=== PATIENT | female | born 1975 | race Caucasian/White ===

== ENCOUNTER 2016-09-12 12:35 | Emergency (ER) | payer OTHER ==
[~2016-09-12] VITALS: Ht 154.9 cm; Wt 98.3 kg
[~2016-09-12 12:35] MED LIST: AMRIX15 MG PO; ASACOL HD800 MG PO; AZATHIOPRINE50 MG PO; BACTRIM,SEPT1 TABLET PO; CELEBREX50 MG PO; CYCLOBENZAPRINE5 MG PO; DICYCLOMINE HCL20 MG PO; Ecotrin PO; FLAGYL250 MG PO; HYDROCODON-ACE1 EAC7 PO; LOTRISONE15 GM TP; LYRICA75 MG PO; Levaquin PO; MOTRIN600 MG PO; NORCO 5/3251 TABLET PO; PLAQUENIL200 MG PO; PRILOSEC40 MG PO; Pravachol PO; REMICADE10 MG/ML IV; TESSALON PERLE100 MG PO; TIZANIDINE HCL; TRAMADOL HCL50 MG PO; VICODIN 5-3001 EACH PO; ZOFRAN ODT4 MG PO
[2016-09-12 15:36] LABS: ADD MIUA? NO; BILIRUBIN NEGATIVE; BLOOD NEGATIVE; COLOR YELLOW ((YELLOW)); GLUCOSE (STRIP) NEGATIVE; KETONES NEGATIVE; LEUKOCYTES NEGATIVE; NITRITE NEGATIVE; PROTEIN (STRIP) NEGATIVE; SPECIFIC GRAVITY 1.012 (1.000-1.030); UCUL ADDED? NO; UROBILINOGEN 0.2 MG/DL (0.2-1.0)
[2016-09-12 17:06] LABS: HEMATOCRIT 33.1 % (36.0-46.0); MCH 32.7 PG (29.0-34.0); MCHC 33.2 G/DL (30.0-36.0); MCV 98.5 FL (83-99); MEAN PLAT.VOLUME 9.9 uM^3 (9.5-12.4); PLATELET COUNT 292 K/uL (156-360); RBC DIS.WIDTH-CV 13.8 % (11.8-14.6); RBC DIS.WIDTH-SD 46.6 % (39-53); RED BLOOD COUNT 3.36 M/uL (3.80-5.20); WHITE BLOOD COUNT 5.5 K/uL (4.1-10.2)
[2016-09-12 17:19] LABS: CHLORIDE 103 mEq/L (99-109); POTASSIUM 3.5 mEq/L (3.7-5.4); SODIUM 139 mEq/L (136-147)
[2016-09-12 17:21] LABS: GLUCOSE 99 mg/dL (70-99)
[2016-09-12 17:22] LABS: ANION GAP 10 MEQ/L (2-14)
[2016-09-12 17:23] LABS: TOTAL BILIRUBIN 0.4 mg/dL (0.0-1.0)
[2016-09-12 17:24] LABS: ALKALINE PHOSPHATASE 90 IU/L (3-129)
[2016-09-12 17:25] LABS: GFR ESTIMATE (CALCULATED) > 59 mL/min/
[2016-09-12 17:26] LABS: UREA NITROGEN (BUN) 7 mg/dL (9-23)
[2016-09-12] MEDS ORDERED: ANTIVERT12.5 MG PO (17:52)
[2016-09-12 18:04] VITALS: BP 140/79
== END 2016-09-12 18:05 | disposition home or self-care (01) ==
LOC: EME 12:35 → EXP 12:35
PROVIDERS: Nurse Practitioner Family
DX: R42 Dizziness and giddiness (principal); R51 Headache; G89.29 Other chronic pain; D64.9 Anemia, unspecified
CPT/HCPCS: 70450; 80053; 81003; 85027; 99281; 99285

== ENCOUNTER 2017-05-08 14:34 | Emergency (ER) | payer OTHER ==
[~2017-05-08] VITALS: Ht 154.9 cm; Wt 101.0 kg
[~2017-05-08 14:34] MED LIST changes: +ANTIVERT12.5 MG PO
[2017-05-08 16:09] LABS: EOSINOPHIL (%) 4.2 % (0-5); EOSINOPHIL COUNT 0.2 K/uL (0-0.3); HEMATOCRIT 35.5 % (36.0-46.0); IMMATURE GRANULOCYTE (%) 0.4 % (0.0-0.7); INSTRUMENT ABS NEUTROPHIL CT 3.5 K/uL; LYMPHOCYTE COUNT 1.3 K/uL (1.0-2.8); MCH 33.6 PG (29.0-34.0); MCHC 33.2 G/DL (30.0-36.0); MCV 101.1 FL (83-99); MEAN PLAT.VOLUME 9.9 uM^3 (9.5-12.4); MONOCYTE (%) 6.5 % (3-12); MONOCYTE COUNT 0.4 K/uL (0-0.8); NEUTROPHIL (%) 64.7 % (45-76); NEUTROPHIL COUNT 3.5 K/uL (1.8-6.4); PLATELET COUNT 232 K/uL (156-360); RBC DIS.WIDTH-CV 13.5 % (11.8-14.6); RBC DIS.WIDTH-SD 50.6 % (39-53); RED BLOOD COUNT 3.51 M/uL (3.80-5.20); WHITE BLOOD COUNT 5.4 K/uL (4.1-10.2)
[2017-05-08 16:19] LABS: CHLORIDE 105 mEq/L (99-109); POTASSIUM 3.8 mEq/L (3.7-5.4); SODIUM 142 mEq/L (136-147)
[2017-05-08 16:21] LABS: GLUCOSE 97 mg/dL (70-99)
[2017-05-08 16:22] LABS: ANION GAP 11 MEQ/L (2-14)
[2017-05-08 16:25] LABS: GFR ESTIMATE (CALCULATED) > 59 mL/min/; UREA NITROGEN (BUN) 12 mg/dL (9-23)
[2017-05-08 16:32] LABS: QUANTITATIVE HCG < 4.0 MIU/ML
[2017-05-08] MEDS ORDERED: INDOCIN50 MG PO (17:45)
[2017-05-08] MEDS ORDERED: TESSALON PERLE100 MG PO (17:45)
[2017-05-08 18:27] VITALS: BP 135/92
== END 2017-05-08 18:28 | disposition home or self-care (01) ==
LOC: EME 14:34
PROVIDERS: Physician Assistant
DX: J20.8 Acute bronchitis due to other specified organisms (principal); S29.011A Strain of muscle and tendon of front wall of thorax, initial encounter; X58.XXXA Exposure to other specified factors, initial encounter; Z88.0 Allergy status to penicillin
CPT/HCPCS: 71020; 80048; 84702; 85025; 85379; 93005; 99281; 99283

== ENCOUNTER 2017-11-20 20:18 | Emergency (ER) | payer OTHER ==
[~2017-11-20] VITALS: Ht 154.9 cm; Wt 100.4 kg
[~2017-11-20 20:18] MED LIST changes: +INDOCIN50 MG PO
[2017-11-20 20:44] LABS: HEMATOCRIT 33.8 % (36.0-46.0); HEMOGLOBIN 11.8 G/DL (11.9-15.5); MCH 34.3 PG (29.0-34.0); MCHC 34.9 G/DL (30.0-36.0); MCV 98.3 FL (83-99); PLATELET COUNT 237 K/uL (156-360); RBC DIS.WIDTH-CV 13.1 % (11.8-14.6); RBC DIS.WIDTH-SD 46.8 % (39-53); RED BLOOD COUNT 3.44 M/uL (3.80-5.20); WHITE BLOOD COUNT 8.4 K/uL (4.1-10.2)
[2017-11-20 20:54] LABS: ALBUMIN 4.4 g/dL (3.2-4.8); CHLORIDE 103 mEq/L (99-109); POTASSIUM 3.7 mEq/L (3.7-5.4); SODIUM 140 mEq/L (136-147)
[2017-11-20 20:56] LABS: GLUCOSE 140 mg/dL (70-99); TOTAL PROTEIN 7.9 g/dL (6.4-8.3)
[2017-11-20 20:58] LABS: TOTAL BILIRUBIN 0.5 mg/dL (0.0-1.0)
[2017-11-20 20:59] LABS: APPEARANCE SL.HAZY ((CLEAR)); BILIRUBIN NEGATIVE; BLOOD NEGATIVE; COLOR YELLOW ((YELLOW)); GLUCOSE (STRIP) NEGATIVE; KETONES NEGATIVE; LEUKOCYTES NEGATIVE; NITRITE NEGATIVE; PROTEIN (STRIP) 30; SPECIFIC GRAVITY 1.026 (1.000-1.030); UROBILINOGEN 0.2 MG/DL (0.2-1.0)
[2017-11-20 21:00] LABS: ALKALINE PHOSPHATASE 76 IU/L (3-129); CREATININE 0.8 mg/dL (0.6-1.3); GFR ESTIMATE (CALCULATED) > 59 mL/min/
[2017-11-20 21:01] LABS: UREA NITROGEN (BUN) 14 mg/dL (9-23)
[2017-11-20 21:02] LABS: AST (GOT) 29 IU/L (2-34)
[2017-11-20 21:03] LABS: ALT (GPT) 41 IU/L (3-49)
[2017-11-20 21:03] LABS: BACTERIA RARE /HPF; EPITHELIAL CELLS 2+ /HPF; HYALINE CASTS 0-5 /LPF; MUCUS TRACE /LPF; RED BLOOD CELLS 0-5 /HPF (0-5); UCUL ADDED? NO; WHITE BLOOD CELLS 0-5 /HPF (0-5)
[2017-11-20 21:11] LABS: QUANTITATIVE HCG 4.5 MIU/ML
[2017-11-21 00:24] LABS: LIPASE 24 U/L (1.0-51.0)
[2017-11-21] MEDS ORDERED: CIPRO500 MG PO (02:04)
[2017-11-21] MEDS ORDERED: FLAGYL500 MG PO (02:04)
[2017-11-21] MEDS ORDERED: NORCO 5/3251 TABLET PO (02:05)
[2017-11-21 02:31] VITALS: BP 110/89
== END 2017-11-21 02:40 | disposition home or self-care (01) ==
LOC: EME 20:18
DX: K57.92 Diverticulitis of intestine, part unspecified, without perforation or abscess without bleeding (principal); K50.90 Crohn's disease, unspecified, without complications; M79.7 Fibromyalgia; Z86.73 Personal history of transient ischemic attack (TIA), and cerebral infarction without residual deficits; M32.9 Systemic lupus erythematosus, unspecified; Z88.0 Allergy status to penicillin
CPT/HCPCS: 74177; 80053; 81003; 83690; 84702; 85027; 99281; 99285; J2405; J7030; S0028